=== PATIENT | male | born 1970 | race Caucasian/White ===

== ENCOUNTER → 2024-03-29 16:27 | Outpatient (REF) | payer BC, SELFPAY | LOC: RCS 16:27 | PROVIDERS: ATTENDING PHYSICIAN Nurse Practitioner | DX: I10 Essential (primary) hypertension (principal); I71.20 Thoracic aortic aneurysm, without rupture, unspecified | CPT/HCPCS: 93306 ==

== ENCOUNTER 2024-09-26 06:29 | Day surgery (SDC) | payer BC, SELFPAY | END 2024-09-26 11:58 | disposition home or self-care (01) | LOC: GI 06:29 | PROVIDERS: ATTENDING PHYSICIAN Internal Medicine | DX: Z12.11 Encounter for screening for malignant neoplasm of colon (principal); K57.30 Diverticulosis of large intestine without perforation or abscess without bleeding; K64.8 Other hemorrhoids; K55.20 Angiodysplasia of colon without hemorrhage; D12.3 Benign neoplasm of transverse colon; D12.2 Benign neoplasm of ascending colon; D12.4 Benign neoplasm of descending colon; D12.8 Benign neoplasm of rectum; Z98.84 Bariatric surgery status | CPT/HCPCS: 45385; 45380; 88305 ==